=== PATIENT | female | born 1965 | race American Indian/Alaskan Native ===

== ENCOUNTER 2016-02-20 15:24 | Emergency (ER) | payer SELFPAY ==
[2016-02-20 15:57] VITALS: BP 153/99
--- NOTE | 2016-02-20 17:14 | Emergency Department Report ---
[id number] [id number] Severity: Moderate History: Yes Pain, Yes Purulent Drainage, Yes Previous History, No Fever, No Numbness, No Foreign Body, No Insect Bite HPI: pt presents with abscess that is draining on right mons pubis, pt has hx of abscess. She c/o pain 09/18. Denies fever, chills, n/v. <CLARIBEL TOPETE - Last Filed: 02/20/16 17:10> <HARMEET DUCKWORTH - Last Filed: 02/22/16 19:28> - HPI Chief Complaint: Skin/Abscess/Foreign Body Stated Complaint: VAGINAL BOIL Time Seen by Provider: 02/20/16 16:30 Home Medications: Previous Rx's Medication Instructions Recorded Last Taken Type Ibuprofen [Motrin 800 MG tab] 800 mg PO Q8HR PRN #20 tablet 02/20/16 Unknown Rx Sulfamethoxazole/Trimethoprim 1 each PO BID #20 tablet 02/20/16 Unknown Rx [Bactrim DS TAB] Allergies/Adverse Reactions: Allergies Allergy/AdvReac Type Severity Reaction Status Date / Time No Known Allergies Allergy Unverified 02/20/16 15:53 ED Review of Systems ROS: Stated complaint: VAGINAL BOIL Other details as noted in HPI Constitutional: denies: chills, fever Respiratory: denies: cough, shortness of breath, wheezing Cardiovascular: denies: chest pain, palpitations Gastrointestinal: denies: abdominal pain, nausea, diarrhea Genitourinary: denies: urgency, dysuria, discharge Musculoskeletal: denies: back pain, joint swelling, arthralgia Skin: as per HPI Neurological: denies: headache, weakness, paresthesias <CLARIBEL TOPETE - Last Filed: 02/20/16 17:10> ROS: Stated complaint: VAGINAL BOIL Other details as noted in HPI <HARMEET DUCKWORTH - Last Filed: 02/22/16 19:28> ED Past Medical Hx - Past Medical History Hx Hypertension: Yes - Surgical History Hx Cholecystectomy: Yes Hx Appendectomy: Yes Additional Surgical History: hysterectomy, lubal x 2, <CLARIBEL TOPETE - Last Filed: 02/20/16 17:10> <HARMEET DUCKWORTH - Last Filed: 02/22/16 19:28> - Medications Home Medications: Home Medications Medication Instructions Recorded Confirmed Last Taken Type Ibuprofen [Motrin 800 MG tab] 800 mg PO Q8HR PRN #20 tablet 02/20/16 Unknown Rx Sulfamethoxazole/Trimethoprim 1 each PO BID #20 tablet 02/20/16 Unknown Rx [Bactrim DS TAB] ED Abscess Boil Physical Exam - Exam General: Vital signs noted. No distress. Alert and acting appropriately. there is approx 1cm abscess present on left mons pubis that is open and draining. There is approx. 2cm of nonfluctuance superficially. Size: 1 cm Exam: Yes Tenderness, Yes Surrounding Cellulites/Erythema (mild), Yes Normal Neurologic Exam, Yes Normal Circulation, No Fluctuance, No Lymphangitis, No Crepitation, No Heart Murmur <CLARIBEL TOPETE - Last Filed: 02/20/16 17:10> - Exam General: Vital signs noted. No distress. Alert and acting appropriately. <HARMEET DUCKWORTH - Last Filed: 02/22/16 19:28> ED Course Vital Signs 02/20/16 15:54 Temperature 97 F L Pulse Rate 90 Respiratory 14 Rate Blood Pressure 153/99 [Right] O2 Sat by Pulse 99 Oximetry <CLARIBEL TOPETE - Last Filed: 02/20/16 17:10> Vital Signs 02/20/16 15:54 Temperature 97 F L Pulse Rate 90 Respiratory 14 Rate Blood Pressure 153/99 [Right] O2 Sat by Pulse 99 Oximetry <HARMEET DUCKWORTH - Last Filed: 02/22/16 19:28> Critical care attestation.: If time is entered above; I have spent that time in minutes in the direct care of this critically ill patient, excluding procedure time. <CLARIBEL TOPETE - Last Filed: 02/20/16 17:10> Critical care attestation.: If time is entered above; I have spent that time in minutes in the direct care of this critically ill patient, excluding procedure time. <HARMEET DUCKWORTH - Last Filed: 02/22/16 19:28> ED Medical Decision Making - Medical Decision Making Patient presents with abscess with mild cellulitis that is draining. I will give her Bactrim bid x 10 days and has her f/u with her PCP or in ED if unresolved after antibiotic treatment. - Differential Diagnosis abscess, cyst <CLARIBEL TOPETE - Last Filed: 02/20/16 17:10> ED Disposition Is pt being admited?: No Does the pt Need Aspirin: No Time of Disposition: 17:22 <CLARIBEL TOPETE - Last Filed: 02/20/16 17:10> <HARMEET DUCKWORTH - Last Filed: 02/22/16 19:28> Disposition: DISCHARGED TO HOME OR SELFCARE Condition: Stable Instructions: Abscess (ED), Cellulitis (ED) Additional Instructions: Return to ED if pain uncontrolled, worsening of symptoms, fever, chills, nausea , vomiting occurs, or if wound fails to heal. Prescriptions: Sulfamethoxazole/Trimethoprim [Bactrim DS TAB] 1 each PO BID #20 tablet Ibuprofen [Motrin 800 MG tab] 800 mg PO Q8HR PRN #20 tablet PRN Reason: Pain Referrals: PRIMARY CARE,MD [Primary Care Provider] - 3-5 Days Forms: Work/School Release Form(ED)
== END 2016-02-20 17:48 | disposition home or self-care (01) ==
LOC: ED 15:24
DX: L02.215 Cutaneous abscess of perineum (principal); I10 Essential (primary) hypertension
CPT/HCPCS: 99282